=== PATIENT | female | born 1990 | race Caucasian/White ===

== ENCOUNTER 2019-09-10 20:38 | Emergency (ER) | payer SELFPAY ==
[~2019-09-10] VITALS: Ht 165.1 cm; Wt 73.9 kg
--- NOTE | 2019-09-10 21:09 | NUR ---
PROVIDER AT BEDSIDE FOR EVAL.
--- NOTE | 2019-09-10 21:19 | NUR ---
LAB AT BEDSIDE.
--- NOTE | 2019-09-10 21:28 | NUR ---
TO BR FOR URINE SAMPLE.
[2019-09-10 21:43] VITALS: BP 125/73
[2019-09-10 21:45] LABS: ALBUMIN 4.2 g/dL (3.4-5.0); ANION GAP 6 mmol/L (5-15); CALCIUM 8.7 mg/dL (8.5-10.1); CHLORIDE 109 mmol/L (98-107); CREATININE 0.78 mg/dL (0.55-1.02)
[2019-09-10 22:06] LABS: BASOPHILS # (AUTO) 0.05 x10^3/uL (0-0.1); BASOPHILS % (AUTO) 1 % (0-1); EOSINOPHILS # (AUTO) 0.12 x10^3/uL (0-0.4); EOSINOPHILS % (AUTO) 1 % (1-7); LYMPHOCYTES # (AUTO) 1.65 x10^3/uL (1-3.4); LYMPHOCYTES % (AUTO) 18 % (22-44); MD SCAN; MEAN CORPUSCULAR HEMOGLOBIN 29.6 pg (27.0-34.8); MEAN CORPUSCULAR HGB CONC 33.3 g/dL (32.4-35.8); MEAN CORPUSCULAR VOLUME 88.9 fL (80-100); MEAN PLATELET VOLUME 11.1 fL (7.4-10.4); MONOCYTES # (AUTO) 0.39 x10^3/uL (0.2-0.8); MONOCYTES % (AUTO) 4 % (2-9); NEUTROPHILS # (AUTO) 7.19 x10^3/uL (1.8-6.8); NEUTROPHILS % (AUTO) 77 % (42-75); PLATELET COUNT 240 x10^3/uL (130-400); RED BLOOD COUNT 4.92 x10^6/uL (3.82-5.3); RED CELL DISTRIBUTION WIDTH 13.7 % (9.6-15.2)
[2019-09-10 22:13] LABS: MICROSCOPIC INDICATED
--- NOTE | 2019-09-10 22:25 | NUR ---
PT TO ULTRASOUND.
== END 2019-09-11 00:16 | disposition home or self-care (01) ==
LOC: ED 22:53
DX: O20.0 Threatened abortion (principal); O23.11 Infections of bladder in pregnancy, first trimester; Z3A.09 9 weeks gestation of pregnancy
CPT/HCPCS: 36415; 76801; 80048; 81001; 82040; 84702; 85025; 86901; 87086; 99284

== ENCOUNTER 2019-09-14 14:09 | Emergency (ER) | payer OTHER ==
[~2019-09-14] VITALS: Ht 162.6 cm; Wt 74.0 kg
--- NOTE | 2019-09-14 15:15 | NUR ---
FIRST CONTACT WITH PT. PT SITTING UP IN [facility], THALIA. SO AT BEDSIDE. PT REPORTS CONTINUED VB X TUESDAY, NOW PASSING CLOTS. PT REPORTS SEEN HERE PRIOR FOR SAME, DX WITH UTI, AND TOLD TO RETURN IF CLOTTING OCCURED. PT DENIES DIZZINESS/WEAKNESS. PWD. . APPROX 7WEEKS.
--- NOTE | 2019-09-14 15:52 | NUR ---
PT TO US
[2019-09-14 15:59] LABS: BASOPHILS # (AUTO) 0.03 x10^3/uL (0-0.1); BASOPHILS % (AUTO) 0 % (0-1); EOSINOPHILS # (AUTO) 0.09 x10^3/uL (0-0.4); EOSINOPHILS % (AUTO) 1 % (1-7); LYMPHOCYTES # (AUTO) 1.73 x10^3/uL (1-3.4); LYMPHOCYTES % (AUTO) 22 % (22-44); MD NO; MEAN CORPUSCULAR HEMOGLOBIN 29.4 pg (27.0-34.8); MEAN PLATELET VOLUME 10.8 fL (7.4-10.4); MONOCYTES % (AUTO) 5 % (2-9); NEUTROPHILS # (AUTO) 5.53 x10^3/uL (1.8-6.8); NEUTROPHILS % (AUTO) 71 % (42-75); PLATELET COUNT 207 x10^3/uL (130-400); RED BLOOD COUNT 4.76 x10^6/uL (3.82-5.3); RED CELL DISTRIBUTION WIDTH 13.4 % (9.6-15.2)
[2019-09-14 16:07] LABS: ALBUMIN 4.1 g/dL (3.4-5.0); ANION GAP 5 mmol/L (5-15); CHLORIDE 108 mmol/L (98-107); CREATININE 0.73 mg/dL (0.55-1.02)
--- NOTE | 2019-09-14 16:37 | NUR ---
RETURNED FROM US, NAD NOTED. SO AT BEDSIDE. DENIES PAIN/NEEDS. UPDATED TO POC (RESULTS/RECHECK) AND DEMONSTRATES UNDERSTANDING
--- NOTE | 2019-09-14 17:30 | NUR ---
PT MADE AWARE OF DELAY. AWAITING INSTRUMENT LENS GRINDER TO RETURN PAGE
--- NOTE | 2019-09-14 18:59 | NUR ---
MEDICATION REQUESTED FROM PHARMACY
[2019-09-14] MEDS ORDERED: MISOPROSTOL 100 MCG TABLET PO ONE (19:00)
--- NOTE | 2019-09-14 19:39 | NUR ---
Pt and tearful at this time, checking with MD regarding medication order at this time. Very nice couple, very supportive of each other in room.
--- NOTE | 2019-09-14 20:09 | NUR ---
NO S/S OF RX RXN NOTED. DC EDUCATION PROVIDED, PT AND SO DEMONSTRATE UNDERSTANDING. PT AMBULATED STEADILY TO DC WITH RN AND SO.
[2019-09-14 20:10] VITALS: BP 110/57
== END 2019-09-14 20:11 | disposition home or self-care (01) ==
LOC: ED 14:31
DX: O03.4 Incomplete spontaneous abortion without complication (principal)
CPT/HCPCS: 36415; 76801; 80048; 82040; 84702; 85025; 99284

== ENCOUNTER 2019-09-15 02:09 | Inpatient (IN) | payer OTHER ==
[~2019-09-15] VITALS: Ht 162.6 cm; Wt 78.0 kg
--- NOTE | 2019-09-15 02:16 | NUR ---
Pt seen here earlier this pm and given cytotec for an inomplete miscarriage and d/c home. States multiple large lucien blood vb into toilet. [facility] approximates 150-200 ml in toilet bowel upon arrival. Denies dizziness/syncopal episodes. Pt hr mildly elevated otherwise vss. Lucien blood on tx sheet from [facility]. Monitoring applied. Call light within reach. Md at bedside for assessment.
--- NOTE | 2019-09-15 02:21 | NUR ---
Pt bedside report to primary rnPieter.
--- NOTE | 2019-09-15 02:25 | NUR ---
BS report from Bhavik RN, pt resting in [facility], call light on lap, P/W/D, NAD, RESP WNL, VSS, WCTM. at .
[2019-09-15] MEDS ORDERED: ONDANSETRON 2MG/ML, 2ML ONE (03:16)
[2019-09-15] MEDS ORDERED: ONDANSETRON 2MG/ML, 2ML IVPush ONE (03:30)
[2019-09-15] MEDS ORDERED: SODIUM CHLORIDE 0.9% 1,000ML IVBOLUS ONE (03:30)
[2019-09-15] MEDS ORDERED: SODIUM CHLORIDE FLUSH 10ML SYR IVF ONE (03:30)
--- NOTE | 2019-09-15 03:39 | NUR ---
PELVIC EXAM COMPLETED WITH PRIMARY RN AT BS. POST EXAM PT WISHED TO USED RESTROOM, WHEN PT WAS HELPED TO STAND PT BECAME PALE AND NAUSEATED. PT FELT DIZZY. PT WAS HELPED BACK TO [facility] AND FOUND TO HAVE A FULLY SOAKED PAD. PT GIVEN BEDPAN BUT WAS UNABLE TO USE RESTROOM ON IT. MD INFORMED OF PT NEAR SYNCOPE EPISODE. PT MEDICATED PER JUN. PT COLOR NOW WNL AND VSS. PT PLACED ON MONITOR. AT BS. WCTM.
[2019-09-15 03:41] LABS: BASOPHILS # (AUTO) 0.07 x10^3/uL (0-0.1); BASOPHILS % (AUTO) 1 % (0-1); EOSINOPHILS # (AUTO) 0.16 x10^3/uL (0-0.4); EOSINOPHILS % (AUTO) 1 % (1-7); LYMPHOCYTES # (AUTO) 1.94 x10^3/uL (1-3.4); LYMPHOCYTES % (AUTO) 16 % (22-44); MD NO; MEAN CORPUSCULAR HEMOGLOBIN 29.6 pg (27.0-34.8); MEAN CORPUSCULAR VOLUME 89.7 fL (80-100); MEAN PLATELET VOLUME 10.8 fL (7.4-10.4); MONOCYTES # (AUTO) 0.69 x10^3/uL (0.2-0.8); MONOCYTES % (AUTO) 6 % (2-9); NEUTROPHILS # (AUTO) 9.17 x10^3/uL (1.8-6.8); NEUTROPHILS % (AUTO) 76 % (42-75); PLATELET COUNT 254 x10^3/uL (130-400); RED BLOOD COUNT 4.55 x10^6/uL (3.82-5.3); RED CELL DISTRIBUTION WIDTH 13.4 % (9.6-15.2)
--- NOTE | 2019-09-15 03:45 | NUR ---
LATE ENTRY: PT PAD COMPLETELY SOAKED, PT CHANGED, SOAKED UNDERWEAR PAD AND BEDPAD REMOVED/CHANGED. WCTM. VSS, NAD, RESP WNL.
--- NOTE | 2019-09-15 04:16 | NUR ---
PT RESTING IN GURNEY, GIVEN CLEAN WARM BLANKETS, SHEETS AND PADS UNDER PT CHANGED, PT NAD, SKIN COLOR WNL WARM AND DRY, CALL LIGHT ON LAP, LIGHTS DIMMED FOR COMFORT, UPDATED ON POC. WCTM. PT HERE FOR OBSERVATION CURRENTLY.
--- NOTE | 2019-09-15 05:20 | NUR ---
While pt on commode utilizing rr, yelled out into hallway for help and pt found on commode more pale and appeared to have experienced a snycopal episode. Pt assisted back into bed w/ max assist and all monitoring reattached. Vss. made aware. Md verbally order 1 more L ns. L ns hung per verbal order. Awaiting further orders at this time.
--- NOTE | 2019-09-15 05:27 | NUR ---
PT WAS USING COMMODE, AND PT HAD BEEN NOTIFIED TO PRESS CALL LIGHT OR CALL IF THERE WAS AN ISSUE OR CHANGE IN PT MENTATION. PRESSED CALL LIGHT AND YELLED INTO THE HALLWAY "I NEED A NURSE IN HERE". PRIMARY RN ENTERED ROOM, PT WAS EXTREMELY PALE, LIPS BLUE, EYES PARTIALLY OPEN, PT LISTLESS. RN ROUSED PT WITH VERBAL CUES AND GOT PT TO OPEN EYES COMPLETELY, PULSE AT THE TIME WAS APPROXIMATELY 80. PT HELPED BACK TO [facility], PLACED BACK ON MONITOR, AT BS. AT BS FOR KIRT. FELECIA
--- NOTE | 2019-09-15 06:15 | NUR ---
PT RESTING IN GURNEY, EYES CLOSED, AT BS, CALL LIGHT ON LAP, SKIN PALE WARM AND DRY, NAD, VSS, WCTM. WAITING FOR ADDITIONAL LABS
--- NOTE | 2019-09-15 06:39 | NUR ---
Pt sleeping and hr steady 113-120. made aware and awaiting new orders.
--- NOTE | 2019-09-15 07:02 | NUR ---
BEDSIDE REPORT TO SHEY STEEL, PT CARE TRANSFERRED AT THIS TIME.
--- NOTE | 2019-09-15 07:15 | NUR ---
at bedside, pt resting in bed. kelsea Chin at bedside to discuss poc. consents signed
--- NOTE | 2019-09-15 08:56 | NUR ---
Report given to BELLOWS FILLER,
--- NOTE | 2019-09-15 09:06 | NUR ---
Assistance to bedside commode. Report to Mckayla STEEL
[2019-09-15 09:30] VITALS: BP 102/61
[2019-09-15] MEDS ORDERED: SILVER NITRATE STICK TP ONE (09:40)
[2019-09-15] MEDS ORDERED: METHYLERGONOVINE 0.2 MG/ML IM ONE (09:40)
[2019-09-15] MEDS ORDERED: OXYTOCIN 10 UNITS/ML, 1ML ONE (09:40)
[2019-09-15] MEDS ORDERED: MISOPROSTOL 200 MCG TABLET ONE (09:40)
[2019-09-15 10:00] VITALS: BP 102/61
[2019-09-15] MEDS ORDERED: PROPOFOL 50 ML ONE (11:15)
[2019-09-15] MEDS ORDERED: FENTANYL PF 250 MCG/5ML ONE (11:16)
[2019-09-15] MEDS ORDERED: MIDAZOLAM 1 MG/ML, 2ML ONE (11:16)
[2019-09-15] MEDS ORDERED: PROMETHAZINE 25 MG/ML, 1ML IVPush PRN (12:30)
[2019-09-15] MEDS ORDERED: EPHEDRINE 50 MG/ML, 1ML IVPush PRN (12:30)
[2019-09-15] MEDS ORDERED: DIAZEPAM 5 MG/ML, 2ML IVPush PRN (12:30)
[2019-09-15] MEDS ORDERED: MIDAZOLAM 1 MG/ML, 2ML IV PRN (12:30)
[2019-09-15] MEDS ORDERED: ACETAMINOPHEN 325 MG TABLET PO PRN (12:30)
[2019-09-15] MEDS ORDERED: DIPHENHYDRAMINE 50 MG/ML, 1ML IVPush PRN (12:30)
[2019-09-15] MEDS ORDERED: FENTANYL PF 100 MCG/2ML IV PRN (12:30)
[2019-09-15] MEDS ORDERED: OXYcodone 5 MG/5 ML ORAL.SOL UDC PO PRN (12:30)
[2019-09-15] MEDS ORDERED: ONDANSETRON 2MG/ML, 2ML IVPush PRN (12:30)
[2019-09-15] MEDS ORDERED: HYDROmorphone 1 MG/ML, 1ML INJ IVPush PRN (12:30)
[2019-09-15] MEDS ORDERED: OXYcodone 5 MG/5 ML ORAL.SOL UDC ONE (13:53)
[2019-09-15 17:42] VITALS: BP 138/77
== END 2019-09-15 18:20 | disposition home or self-care (01) | DRG 770 ==
LOC: ED 02:24 → EDIP 08:48 → 4NE 09:20
PROVIDERS: ADMIT Obstetrics & Gynecology; ATTEND Obstetrics & Gynecology
PROC: 30233N1 Transfusion of Nonautologous Red Blood Cells into Peripheral Vein, Percutaneous Approach (ICD-10-PCS; 2019-09-15)
PROC: 10D17ZZ Extraction of Products of Conception, Retained, Via Natural or Artificial Opening (ICD-10-PCS; principal; 2019-09-15 11:30)
DX: O02.1 Missed abortion (principal); D64.9 Anemia, unspecified; G40.909 Epilepsy, unspecified, not intractable, without status epilepticus
CPT/HCPCS: 36415; 84702; 85014; 85018; 85025; 86850; 86900; 86923; 88305; 96360; 99285; G0378; J2250; J2704; J3010; J2210; J2590; J7030; P9016